=== PATIENT | female | born 1965 | race Two or more races ===

== ENCOUNTER 2019-05-23 16:07 | Observation (INO) | payer MEDICAID, OTHER ==
[~2019-05-23] VITALS: Ht 162.6 cm; Wt 94.5 kg
[2019-05-23] MEDS ORDERED: aspirin 81mg tab.chew PO ONE (16:15)
[2019-05-23 16:41] LABS: BASOPHILS # (AUTO) 0.1 X10'3 (0-0.2); BASOPHILS % (AUTO) 0.6 % (0-1); EOSINOPHILS # (AUTO) 0.1 X10'3 (0-0.9); EOSINOPHILS % (AUTO) 0.6 % (0-6); HEMATOCRIT 42.3 % (35.0-45.0); HEMOGLOBIN 14.5 g/dl (12.0-16.0); LYMPHOCYTES # (AUTO) 3.7 X10'3 (1.1-4.8); LYMPHOCYTES % (AUTO) 38.8 % (21-51); MEAN CORPUSCULAR HEMOGLOBIN 30.1 PG (27.0-31.0); MEAN CORPUSCULAR HGB CONC 34.3 g/dL (33.0-36.5); MEAN CORPUSCULAR VOLUME 87.7 FL (78-98); MEAN PLATELET VOLUME 8.6 FL (7.4-10.4); MONOCYTES # (AUTO) 0.4 X10'3 (0-0.9); MONOCYTES % (AUTO) 4.7 % (2-12); NEUTROPHILS # (AUTO) 5.2 X10'3 (1.8-7.7); NEUTROPHILS % (AUTO) 55.3 % (42-75); PLATELET COUNT 232 X10'3 (140-440); RED BLOOD COUNT 4.82 X10'6 (4.20-5.60); RED CELL DISTRIBUTION WIDTH 13.3 % (11.5-14.5); WHITE BLOOD COUNT 9.4 X10'3 (4.5-11.0)
[2019-05-23 16:44] LABS: D-DIMER 0.38 MG/L FEU (0-0.50); PARTIAL THROMBOPLASTIN TIME 26 SECONDS (22-32)
[2019-05-23 16:53] LABS: ALANINE AMINOTRANSFERASE 98 U/L (12-78); ALBUMIN 4.2 G/DL (3.4-5.0); ALBUMIN/GLOBULIN RATIO 1.2 (1.1-1.5); ALKALINE PHOSPHATASE 133 IU/L (46-116); ANION GAP 8 (8-16); ASPARTATE AMINO TRANSFERASE 59 U/L (10-37); BILIRUBIN,TOTAL 0.7 MG/DL (0.1-1.0); BLOOD UREA NITROGEN 11 MG/DL (7-18); BUN/CREATININE RATIO 10.5 (6.6-38.0); CALCIUM 9.1 MG/DL (8.5-10.1); CHLORIDE 107 MMOL/L (99-107); CREATININE 1.05 MG/DL (0.40-0.90); GLUCOSE 127 MG/DL (70-104); POTASSIUM 3.5 MMOL/L (3.5-5.1); SODIUM 140 MMOL/L (135-145); TOTAL CARBON DIOXIDE 25.5 MMOL/L (24-32); TOTAL PROTEIN 7.7 G/DL (6.4-8.2); eGFR 54 ML/MIN
[2019-05-23 16:56] LABS: MAGNESIUM 2.4 MG/DL (1.5-2.4)
[2019-05-23] MEDS ORDERED: magnesium hydroxide 30ml (MOM) UD suspension PO PRN (17:35)
[2019-05-23] MEDS ORDERED: ondansetron/PF 4mg/2ml inj IV PRN (17:35)
[2019-05-23] MEDS ORDERED: mag hydrox/Alum hydrox/simeth 30ml oral suspension PO PRN (17:35)
[2019-05-23] MEDS ORDERED: morphine 2 MG/ML inj. syringe IV PRN ×2 (17:35)
[2019-05-23] MEDS ORDERED: acetaminophen 325mg tablet PO PRN (17:35)
[2019-05-23] MEDS ORDERED: METF500T PO ×2 (17:46)
[2019-05-23] MEDS ORDERED: PRAV40TA3 PO (17:46)
[2019-05-23] MEDS ORDERED: LISI10TA4 PO (17:46)
[2019-05-23] MEDS ORDERED: regadenoson 0.4mg/5ml syringe IV PRN (17:50)
[2019-05-23] MEDS ORDERED: nitroGLYCERIN 0.4mg SUBLingual tab SL PRN (17:50)
[2019-05-23] MEDS ORDERED: metoprolol tartrate 1mg/ml inj IV PRN (17:50)
[2019-05-23] MEDS ORDERED: aminophylline 250mg/10ml inj. IV PRN (17:50)
[2019-05-23] MEDS: normal saline 1000ml 1,000 ML IV SCH (17:51)
[2019-05-23 20:00] VITALS: BP 145/61
--- NOTE | 2019-05-23 20:00 | NUR ---
Patient in room PCU 3013. I have received report from Alfonzo ANDERSON in ER and had the opportunity to ask questions and assume patient care.
[2019-05-23] MEDS ORDERED: OMEP40CA13 PO (20:19)
[2019-05-23] MEDS ORDERED: METF1000 PO ×2 (20:19)
--- NOTE | 2019-05-23 20:56 | NUR ---
Paged Dr. Reyes [phone] Tonya Hall - Pt c/o epigastric burning/discomfort + to palpation. relief w/ sitting upright. Pt states they had forgotten to take their prilosec 40mg this AM. Requesting continuation of medication starting now. [phone] Crow
[2019-05-23] MEDS: pantoprazole 40 MG vial IV SCH (21:33)
[2019-05-23] MEDS: heparin, porcine 5000 units/ml vial SQ SCH (21:35)
[2019-05-23 22:32] LABS: HEMOGLOBIN A1C 7.8 % (4.5-6.2)
[2019-05-23 23:00] VITALS: BP 142/58
[2019-05-24] VITALS (13 sets, daily range): BP systolic 120–143; BP diastolic 48–72
[2019-05-24] MEDS: normal saline 1000ml 1,000 ML IV SCH ×2 (04:20→13:32)
[2019-05-24 05:59] LABS: BASOPHILS % (AUTO) 0.6 % (0-1); EOSINOPHILS # (AUTO) 0.1 X10'3 (0-0.9); EOSINOPHILS % (AUTO) 2.1 % (0-6); HEMATOCRIT 40.1 % (35.0-45.0); HEMOGLOBIN 13.4 g/dl (12.0-16.0); LYMPHOCYTES # (AUTO) 2.8 X10'3 (1.1-4.8); LYMPHOCYTES % (AUTO) 40.8 % (21-51); MEAN CORPUSCULAR HEMOGLOBIN 29.7 PG (27.0-31.0); MEAN CORPUSCULAR HGB CONC 33.4 g/dL (33.0-36.5); MEAN PLATELET VOLUME 8.6 FL (7.4-10.4); MONOCYTES # (AUTO) 0.4 X10'3 (0-0.9); MONOCYTES % (AUTO) 6.4 % (2-12); NEUTROPHILS # (AUTO) 3.5 X10'3 (1.8-7.7); NEUTROPHILS % (AUTO) 50.1 % (42-75); PLATELET COUNT 200 X10'3 (140-440); RED BLOOD COUNT 4.51 X10'6 (4.20-5.60); RED CELL DISTRIBUTION WIDTH 13.1 % (11.5-14.5); WHITE BLOOD COUNT 6.9 X10'3 (4.5-11.0)
--- NOTE | 2019-05-24 06:00 | NUR ---
Patient in room PCU 3013. I have received report from Crow ANDERSON and had the opportunity to ask questions and assume patient care.
--- NOTE | 2019-05-24 06:15 | NUR ---
Problems reprioritized. Patient report given, questions answered & plan of care reviewed with day RN
[2019-05-24 06:22] LABS: ANION GAP 7 (8-16); BLOOD UREA NITROGEN 10 MG/DL (7-18); BUN/CREATININE RATIO 10.6 (6.6-38.0); CHLORIDE 109 MMOL/L (99-107); CREATININE 0.94 MG/DL (0.40-0.90); GLUCOSE 145 MG/DL (70-104); SODIUM 142 MMOL/L (135-145)
[2019-05-24 06:23] LABS: ALBUMIN 3.6 G/DL (3.4-5.0); CALCIUM 8.7 MG/DL (8.5-10.1); eGFR 62 ML/MIN
[2019-05-24 06:30] LABS: POTASSIUM 3.7 MMOL/L (3.5-5.1)
[2019-05-24] MEDS: pantoprazole 40 MG vial IV SCH (08:06)
[2019-05-24] MEDS: heparin, porcine 5000 units/ml vial SQ SCH (08:06)
--- NOTE | 2019-05-24 09:32 | NUR ---
PAGER ID: [phone] MESSAGE: [phone] Alberto Hall c/o SOB, heartburn, discomfort in shoulders, back of neck and left arm. A&Ox4. No facial droop. O2: 98%, BP: 139/66, HR 70. Nuc Med. is ready to take her down. Pls. advise. Ana [phone]
[2019-05-24] MEDS ORDERED: nitroGLYCERIN 0.4mg SUBLingual tab SL PRN (09:35)
--- NOTE | 2019-05-24 09:50 | NUR ---
pt was given nitro sublingual post nuc med resting inj. but prior to resting imaging for stress test, I discussed with nuc med tech regarding increased vasodilation to pt images & rest portion. Nuc med tech called radiologist on called to confirm if that would be okay or a problem? Radiologist stated to NM tech that the medication given voids a true resting image and needs to be redone, which can not be done until tomorrow.
--- NOTE | 2019-05-24 10:06 | NUR ---
PAGER ID: [phone] MESSAGE: [id number] Alberto Hall Per nuc med, pt. will have stress test tomorrow. States nitro annuls test. Ana [phone]
--- NOTE | 2019-05-24 11:10 | NUR ---
spoke with dr. lange, discussed case and he will followup with dr. lawrence
--- NOTE | 2019-05-24 11:56 | NUR ---
DM consult: Pt with A1c 7.8. Attempted visit with pt at bedside however pt unavailable. Written DM education with referral to outpatient CDE course and RD contact information placed in patient's chart. Will remain available. Addendum: 05/24/19 at [address] Amended: Links added.
--- NOTE | 2019-05-24 14:21 | NUR ---
PAGER ID: [phone] MESSAGE: [phone] Alberto Hall Per Dr. Olson, stress test is good, problem is not cardiac. States she may go home on his end. Just FYI. Perez [phone]
--- NOTE | 2019-05-24 15:41 | NUR ---
Per MD orders, patient stable for discharge home. Discharge packet reviewed with patient and niece at bedside. All questions answered to patient satisfaction. Provided with DM packet for weekly meetings with [employer] Supervisor. No new prescriptions to call in. Patient preferred to set up own follow up appt for her convenience. Discontinued Tele monitoring. Discontinued PIV; cannula intact. All belongings sent with patient. Ambulated to private vehicle accompanied by niece.
[2019-05-24] MEDS ORDERED: pravastatin 40mg tablet PO SCH (21:00)
[2019-05-25] MEDS ORDERED: pantoprazole 40mg Tablet.DR PO SCH (07:30)
[2019-05-25] MEDS ORDERED: lisinopril 10 MG tablet PO SCH (08:00)
== END 2019-05-24 15:41 | disposition home or self-care (01) ==
LOC: ER 16:07 → ED HOLD 17:32 → UNDOADMOB 17:37 → ED HOLD 17:37 → PCU 3S 19:10
PROVIDERS: ADMIT Family Medicine; ATTEND Family Medicine
DX: R07.89 Other chest pain (principal); I10 Essential (primary) hypertension; E78.5 Hyperlipidemia, unspecified; E11.9 Type 2 diabetes mellitus without complications; E78.00 Pure hypercholesterolemia, unspecified; K21.9 Gastro-esophageal reflux disease without esophagitis; E66.9 Obesity, unspecified; Z85.41 Personal history of malignant neoplasm of cervix uteri; Z90.710 Acquired absence of both cervix and uterus; Z79.84 Long term (current) use of oral hypoglycemic drugs; Z79.899 Other long term (current) drug therapy; Z68.35 Body mass index [BMI] 35.0-35.9, adult
CPT/HCPCS: 36415; 71045; 78452; 80048; 80053; 82948; 83036; 83735; 83880; 84484; 85025; 85379; 85610; 85730; 87081; 93005; 93017; 96372; 96374; 96376; 99285; A9500; C9113; G0378; J1644; J2785; J7030

== ENCOUNTER 2023-06-18 15:16 | Outpatient (CLI) | payer MEDICAID ==
[~2023-06-18 15:16] MED LIST: LISI10TA27 PO; METF1000 PO; OMEP40CA21 PO; PRAV40TA3 PO
== END 2023-06-18 23:59 | disposition home or self-care (01) ==
LOC: RAD 15:16
PROVIDERS: ATTEND Nurse Practitioner Pediatrics
DX: K76.0 Fatty (change of) liver, not elsewhere classified (principal); R74.8 Abnormal levels of other serum enzymes; Z90.49 Acquired absence of other specified parts of digestive tract
CPT/HCPCS: 76700